=== PATIENT | male | born 1980 | race Caucasian/White ===

== ENCOUNTER 2016-06-21 10:40 | Emergency (ER) | payer SELFPAY ==
[~2016-06-21] VITALS: Ht 170.2 cm; Wt 63.5 kg
[2016-06-21 10:52] VITALS: BP 108/90
== END 2016-06-21 11:41 | disposition home or self-care (01) ==
LOC: ER 10:40
DX: S63.273A Dislocation of unspecified interphalangeal joint of left middle finger, initial encounter (principal); F17.210 Nicotine dependence, cigarettes, uncomplicated; F12.10 Cannabis abuse, uncomplicated; W19.XXXA Unspecified fall, initial encounter; Y93.89 Activity, other specified; Y99.8 Other external cause status; Y92.89 Other specified places as the place of occurrence of the external cause
CPT/HCPCS: 26770; 73140